=== PATIENT | female | born 1980 | race American Indian/Alaskan Native ===

== ENCOUNTER 2017-01-15 20:51 | Emergency (ER) | payer MEDICAID ==
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
[2017-01-16] MEDS ORDERED: NORCO 7.5/325 PO ONE (02:45)
[2017-01-16] MEDS ORDERED: FLEXERIL PO ONE (02:45)
[2017-01-16] MEDS ORDERED: MOTRIN PO ONE (02:45)
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
[2017-01-16 04:55] VITALS: BP 135/69
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
== END 2017-01-16 04:55 | disposition home or self-care (01) ==
LOC: ED 20:51
DX: M54.2 Cervicalgia (principal); M25.511 Pain in right shoulder; R51 Headache; I10 Essential (primary) hypertension; V89.2XXA Person injured in unspecified motor-vehicle accident, traffic, initial encounter; Y93.9 Activity, unspecified; Y99.9 Unspecified external cause status; Y92.410 Unspecified street and highway as the place of occurrence of the external cause
CPT/HCPCS: 70360; 72040; 99283

== ENCOUNTER 2018-10-06 09:55 | Emergency (ER) | payer OTHER ==
[2018-10-06] MEDS ORDERED: DECADRON IV ONE (11:36)
[2018-10-06] MEDS ORDERED: NACL 0.9% 1000 ML 1,000 ML IV ONE (11:36)
--- NOTE | 2018-10-06 12:31 | Emergency Department Report ---
ED General Adult HPI - General Chief complaint: Pain General Stated complaint: LUPUS FLARE UP/STIFF NECK Time Seen by Provider: 10/06/18 11:14 Source: patient Mode of arrival: Ambulatory Limitations: No Limitations - History of Present Illness Initial comments: Patient is a 37-year-old female with a history of lupus presents to ED complaining of generalized body pain for the past week. Patient states her pain has been getting worse. Patient states that she has had lupus for the past 2-3 years. Patient states that she recently moved here so she does not taking currently any medications. She denies fevers/chills/nausea vomiting abdominal pain chest pain on rash. - Related Data Home Medications Medication Instructions Recorded Confirmed Last Taken LORazepam [Ativan] 2 mg PO Q8HR PRN 01/16/17 01/16/17 2 Days Ago ~01/14/17 Previous Rx's Medication Instructions Recorded Last Taken Type Ibuprofen [Motrin 800 MG tab] 800 mg PO TID #30 tablet 07/09/18 Unknown Rx methOCARBAMOL [Robaxin TAB] 500 mg PO TID #15 tab 07/09/18 Unknown Rx predniSONE [Deltasone] 40 mg PO QDAY #10 tablet 07/09/18 Unknown Rx Naproxen [Naprosyn] 500 mg PO BID #30 tablet 10/06/18 Unknown Rx methylPREDNISolone [Medrol 4MG 4 mg PO DAILY #1 tab.ds.pk 10/06/18 Unknown Rx DOSEPAK (21 tabs)] Allergies Allergy/AdvReac Type Severity Reaction Status Date / Time No Known Allergies Allergy Verified 10/06/18 10:05 ED Review of Systems ROS: Stated complaint: LUPUS FLARE UP/STIFF NECK Other details as noted in HPI Comment: All other systems reviewed and negative ED Past Medical Hx - Past Medical History Previous Medical History?: Yes Hx Hypertension: No Additional medical history: Lupus - Surgical History Past Surgical History?: Yes Additional Surgical History: tubal ligation, oral - Social History Smoking Status: Never Smoker Substance Use Type: None - Medications Home Medications: Home Medications Medication Instructions Recorded Confirmed Last Taken Type LORazepam [Ativan] 2 mg PO Q8HR PRN 01/16/17 01/16/17 2 Days Ago History ~01/14/17 Ibuprofen [Motrin 800 MG tab] 800 mg PO TID #30 tablet 07/09/18 Unknown Rx methOCARBAMOL [Robaxin TAB] 500 mg PO TID #15 tab 07/09/18 Unknown Rx predniSONE [Deltasone] 40 mg PO QDAY #10 tablet 07/09/18 Unknown Rx Naproxen [Naprosyn] 500 mg PO BID #30 tablet 10/06/18 Unknown Rx methylPREDNISolone [Medrol 4MG 4 mg PO DAILY #1 tab.ds.pk 10/06/18 Unknown Rx DOSEPAK (21 tabs)] ED Physical Exam - General Limitations: No Limitations General appearance: alert, in no apparent distress - Head Head exam: Present: atraumatic, normocephalic - Eye Eye exam: Present: normal appearance - ENT ENT exam: Present: mucous membranes moist - Neck Neck exam: Present: normal inspection - Respiratory Respiratory exam: Present: normal lung sounds bilaterally. Absent: respiratory distress - Cardiovascular Cardiovascular Exam: Present: regular rate, normal rhythm. Absent: systolic murmur, diastolic murmur, rubs, gallop - GI/Abdominal GI/Abdominal exam: Present: soft, normal bowel sounds - Extremities Exam Extremities exam: Present: normal inspection - Back Exam Back exam: Present: normal inspection - Neurological Exam Neurological exam: Present: alert, oriented X3 - Psychiatric Psychiatric exam: Present: normal affect, normal mood - Skin Skin exam: Present: warm, dry, intact, normal color. Absent: rash ED Course Vital Signs 10/06/18 10:04 Temperature 98.3 F Pulse Rate 72 Respiratory 18 Rate Blood Pressure 153/83 O2 Sat by Pulse 100 Oximetry ED Medical Decision Making - Lab Data Result diagrams: 10/06/18 12:18 10/06/18 12:18 - Medical Decision Making 37-year-old female presented at Lupus flareup of myalgia Patient received Decadron, and 1 L of fluids. And pain Medication in ED. CBC BMP test obtained. Labs show no abnormalities. Discussed patient to follow up with primary care physician. Vital signs are normal patient is in no acute distress. Patient states she feels better after administration of medications. Critical care attestation.: If time is entered above; I have spent that time in minutes in the direct care of this critically ill patient, excluding procedure time. ED Disposition Clinical Impression: Lupus Disposition: DC-01 TO HOME OR SELFCARE Is pt being admited?: No Does the pt Need Aspirin: No Condition: Stable Instructions: Sarcoidosis (ED), Musculoskeletal Pain (ED) Additional Instructions: Make sure to follow up with the primary care physician as discussed. Take all your medications as you've been prescribed. If you have any worsening symptoms or develop new symptoms please return to ED immediately. Prescriptions: methylPREDNISolone [Medrol 4MG DOSEPAK (21 tabs)] 4 mg PO DAILY #1 tab.ds.pk Naproxen [Naprosyn] 500 mg PO BID #30 tablet Referrals: PONCE CATHERINE MD [Primary Care Provider] - 3-5 Days [facility] [Provider Group] - 3-5 Days [facility] [Outside] - 3-5 Days [facility] [Outside] - 3-[address] [facility] [Outside] - 3-5 Days Forms: Work/School Release Form(ED) Time of Disposition: 13:56
[2018-10-06 12:41] LABS: Hematocrit 34.2 % (30.3-42.9); Hemoglobin 11.8 gm/dl (10.1-14.3); Mean Corpuscular HGB Conc 34 % (30-34); Mean Corpuscular Hemoglobin 30 pg (28-32); Mean Corpuscular Volume 87 fl (79-97); Platelet Count 268 K/mm3 (140-440); Red Blood Count 3.91 M/mm3 (3.65-5.03); Red Cell Distribution Width 12.5 % (13.2-15.2)
[2018-10-06 12:42] LABS: Basophils % (Auto) 0.7 % (0.0-1.8); Eosinophils # (Auto) 0.1 K/mm3 (0.0-0.4); Eosinophils % (Auto) 1.8 % (0.0-4.3); Lymphocytes # (Auto) 1.5 K/mm3 (1.2-5.4); Lymphocytes % (Auto) 36.7 % (13.4-35.0); Monocytes # (Auto) 0.3 K/mm3 (0.0-0.8); Monocytes % (Auto) 7.6 % (0.0-7.3)
[2018-10-06 12:57] LABS: BUN/Creatinine Ratio 14; Blood Urea Nitrogen 7 mg/dL (7-17); Calcium 9.2 mg/dL (8.4-10.2); Hemolysis Index 56
[2018-10-06] MEDS ORDERED: TORADOL IV ONE (12:58)
[2018-10-06] MEDS ORDERED: MORPHINE IV ONE (12:58)
[2018-10-06 14:28] VITALS: BP 151/83
== END 2018-10-06 14:54 | disposition home or self-care (01) ==
LOC: ED 09:55
DX: A18.4 Tuberculosis of skin and subcutaneous tissue (principal); Z98.51 Tubal ligation status; Z79.899 Other long term (current) drug therapy
CPT/HCPCS: 36415; 80048; 84703; 85025; 96361; 96374; 96375; 99283; J1100; J1885; J2270; J7030

== ENCOUNTER 2018-10-23 00:11 | Emergency (ER) | payer SELFPAY ==
[2018-10-23] MEDS ORDERED: ASPIRIN PO ONE (01:47)
[2018-10-23 02:27] LABS: Basophils % (Auto) 0.3 % (0.0-1.8); Eosinophils # (Auto) 0.1 K/mm3 (0.0-0.4); Eosinophils % (Auto) 1.9 % (0.0-4.3); Hematocrit 34.4 % (30.3-42.9); Hemoglobin 11.7 gm/dl (10.1-14.3); Lymphocytes # (Auto) 1.5 K/mm3 (1.2-5.4); Lymphocytes % (Auto) 36.1 % (13.4-35.0); Mean Corpuscular HGB Conc 34 % (30-34); Mean Corpuscular Volume 89 fl (79-97); Monocytes # (Auto) 0.4 K/mm3 (0.0-0.8); Monocytes % (Auto) 9.7 % (0.0-7.3); Platelet Count 241 K/mm3 (140-440); Red Blood Count 3.88 M/mm3 (3.65-5.03); Red Cell Distribution Width 13.2 % (13.2-15.2)
[2018-10-23 02:45] LABS: BUN/Creatinine Ratio 20; Blood Urea Nitrogen 10 mg/dL (7-17); Calcium 8.7 mg/dL (8.4-10.2); Hemolysis Index 3
--- NOTE | 2018-10-23 02:53 | XRay Report ---
. CHEST 1 VIEW INDICATION / CLINICAL INFORMATION: Chest Pain. COMPARISON: None available. FINDINGS: SUPPORT DEVICES: None. HEART / MEDIASTINUM: No significant abnormality. LUNGS / PLEURA: No significant pulmonary or pleural abnormality. No pneumothorax. ADDITIONAL FINDINGS: No significant additional findings. IMPRESSION: 1. No acute findings. Signer Name: Benito Alfaro MD Signed: 10/23/2018 2:49 AM Workstation Name: [id number]
[2018-10-23] MEDS ORDERED: ZOFRAN IV ONE (03:54)
[2018-10-23] MEDS ORDERED: SOLU-Medrol IV ONE (03:54)
[2018-10-23] MEDS ORDERED: SUBLIMAZE IV ONE ×2 (03:54→05:31)
[2018-10-23] MEDS ORDERED: K-DUR PO ONE (03:54)
--- NOTE | 2018-10-23 04:03 | Emergency Department Report ---
HPI - General Chief Complaint: Pain General Time Seen by Provider: 10/23/18 03:46 - HPI HPI: Room 17 The patient is a 37-year-old female presenting with a chief complaint body pain from lupus flare. The patient states yesterday she began having pain all over her body consistent with her previous lupus flares. Patient denies fever. Patient admits to nausea but denies vomiting. Patient currently gets her body pain score 10/10. Location: [See above] Duration: [See above] Quality: [See above] Severity: [See above] Modifying factors: [see above] Context: [see above] Mode of transportation: [not driving] ED Past Medical Hx - Past Medical History Hx Hypertension: No Additional medical history: Lupus - Surgical History Additional Surgical History: tubal ligation, oral - Family History Family history: no significant - Social History Smoking Status: Never Smoker Substance Use Type: None (denies illicit drug use), Alcohol (occasional) - Medications Home Medications: Home Medications Medication Instructions Recorded Confirmed Last Taken Type LORazepam [Ativan] 2 mg PO Q8HR PRN 01/16/17 01/16/17 2 Days Ago History ~01/14/17 Ibuprofen [Motrin 800 MG tab] 800 mg PO TID #30 tablet 07/09/18 Unknown Rx methOCARBAMOL [Robaxin TAB] 500 mg PO TID #15 tab 07/09/18 Unknown Rx predniSONE [Deltasone] 40 mg PO QDAY #10 tablet 07/09/18 Unknown Rx methylPREDNISolone [Medrol 4MG 4 mg PO DAILY #1 tab.ds.pk 10/06/18 Unknown Rx DOSEPAK (21 tabs)] traMADol [Ultram 50 MG tab] 50 mg PO Q6HR PRN #15 tablet 10/06/18 Unknown Rx HYDROcodone/APAP 5-325 [[place] 1 - 2 each PO Q6HR PRN #14 tablet 10/23/18 Unknown Rx 5/325] Prednisone [predniSONE 10 mg 10 mg PO .TAPER #1 tab.ds.pk 10/23/18 Unknown Rx (6-Day Pack, 21 Tabs)] ED Review of Systems ROS: Stated complaint: LUPUS FLARE UP,HEADACHE/BACKACHE Other details as noted in HPI Constitutional: denies: fever Eyes: denies: eye pain ENT: denies: throat pain Respiratory: no symptoms reported Cardiovascular: denies: chest pain Endocrine: no symptoms reported Gastrointestinal: nausea Genitourinary: denies: dysuria Musculoskeletal: arthralgia, myalgia Neurological: headache Physical Exam - Physical Exam Vital Signs: Vital Signs 10/23/18 00:56 Temperature 97.6 F Pulse Rate 76 Respiratory 18 Rate Blood Pressure 128/69 O2 Sat by Pulse 100 Oximetry Physical Exam: GENERAL: The patient is well-developed well-nourished female lying on stretcher not appearing to be in acute distress. [] HEENT: Normocephalic. Atraumatic. Extraocular motions are intact. Patient has moist mucous membranes. NECK: Supple. No meningitic signs are noted. Trachea midline CHEST/LUNGS: Clear to auscultation. There is no respiratory distress noted. HEART/CARDIOVASCULAR: Regular. There is no tachycardia. There is no gallop rub or murmur. 2+ radial pulses bilaterally ABDOMEN: Abdomen is soft, nontender. Patient has normal bowel sounds. There is no abdominal distention. SKIN: There is no rash. There is no edema. There is no diaphoresis. NEURO: The patient is awake, alert, and oriented. The patient is cooperative. The patient has no focal neurologic deficits. The patient has normal speech. Cranial nerves II through XII grossly intact MUSCULOSKELETAL: There is mild swelling and soreness of the hands bilaterally.. There is no evidence of acute injury. ED Course Vital Signs 10/23/18 00:56 Temperature 97.6 F Pulse Rate 76 Respiratory 18 Rate Blood Pressure 128/69 O2 Sat by Pulse 100 Oximetry - Reevaluation(s) Reevaluation #1: 10/23/18 05:32 Patient states her pain is decreased to a 6/10. Will administer 1 more round of IV analgesia ED Medical Decision Making - Lab Data Result diagrams: 10/23/18 01:57 10/23/18 01:57 Laboratory Tests 10/23/18 10/23/18 01:57 01:57 WBC 4.0 L RBC 3.88 Hgb 11.7 Hct 34.4 MCV 89 MCH 30 MCHC 34 RDW 13.2 Plt Count 241 Lymph % (Auto) 36.1 H [place] % (Auto) 9.7 H Eos % (Auto) 1.9 Baso % (Auto) 0.3 Lymph # 1.5 [place] # 0.4 Eos # 0.1 Baso # 0.0 Seg Neutrophils % 52.0 Seg Neutrophils # 2.1 Sodium 141 Potassium 3.1 L Chloride 106.1 Carbon Dioxide 23 Anion Gap 15 BUN 10 Creatinine 0.5 L Estimated GFR > 60 BUN/Creatinine Ratio 20 Glucose 132 H Calcium 8.7 Troponin T < 0.010 - EKG Data -: EKG Interpreted by Me EKG shows normal: sinus rhythm Rate: normal - EKG Data When compared to previous EKG there are: previous EKG unavailable Interpretation: nonspecific ST-T wave jason (T-wave inversion in lead V2) - Radiology Data Radiology results: report reviewed (chest x-ray), image reviewed (chest x-ray) interpreted by me: Chest x-ray-no focal infiltrate, no pneumothorax [facility] [address] [place] [address] XRay Report Signed Patient: CEDRICK BUSCH MR#: [id number] : 1980 Acct:[id number] Age/Sex: 37 / F ADM Date: 10/23/18 Loc: ED Attending Dr: Ordering Physician: ED MD GLORIA Date of Service: 10/23/18 Procedure(s): XR chest 1V ap Accession Number(s): [id number] cc: ED MD GLORIA Fluoro Time In Minutes: . CHEST 1 VIEW INDICATION / CLINICAL INFORMATION: Chest Pain. COMPARISON: None available. FINDINGS: SUPPORT DEVICES: None. HEART / MEDIASTINUM: No significant abnormality. LUNGS / PLEURA: No significant pulmonary or pleural abnormality. No pneumothorax. ADDITIONAL FINDINGS: No significant additional findings. IMPRESSION: 1. No acute findings. Signer Name: Benito Alfaro MD Signed: 10/23/2018 2:49 AM Workstation Name: [id number] Transcribed By: IRON Dictated By: Benito Alfaro MD Electronically Authenticated By: Benito Alfaro MD Signed Date/Time: 10/23/18248 DD/ 8 TD/TT: - Differential Diagnosis Lupus flare, Critical care attestation.: If time is entered above; I have spent that time in minutes in the direct care of this critically ill patient, excluding procedure time. ED Disposition Clinical Impression: Arthralgia, Hypokalemia, Lupus Disposition: DC-01 TO HOME OR SELFCARE Is pt being admited?: No Does the pt Need Aspirin: No Condition: Stable Additional Instructions: Return to the emergency department immediately should you develop worsening symptoms, fever, inability to tolerate food or liquid or any other concerns. Prescriptions: HYDROcodone/APAP 5-325 [[place] 5/325] 1 - 2 each PO Q6HR PRN #14 tablet PRN Reason: Pain Prednisone [predniSONE 10 mg (6-Day Pack, 21 Tabs)] 10 mg PO .TAPER #1 tab.ds.pk Referrals: PONCE CATHERINE MD [Primary Care Provider] - 3-5 Days Time of Disposition: 05:33
[2018-10-23] MEDS ORDERED: BENADRYL IV ONE (05:31)
[2018-10-23 06:19] VITALS: BP 127/71
== END 2018-10-23 06:03 | disposition home or self-care (01) ==
LOC: ED 00:11
DX: E87.6 Hypokalemia (principal); A18.4 Tuberculosis of skin and subcutaneous tissue; Z79.899 Other long term (current) drug therapy
CPT/HCPCS: 36415; 71045; 80048; 84484; 85025; 93005; 93010; 96374; 96375; 96376; 99284; J1200; J2405; J2930; J3010

== ENCOUNTER 2018-11-26 09:38 | Emergency (ER) | payer MEDICAID ==
[2018-11-26] MEDS ORDERED: MORPHINE IV ONE (12:16)
[2018-11-26] MEDS ORDERED: ZOFRAN IV ONE (12:16)
[2018-11-26] MEDS ORDERED: NACL 0.9% 1000 ML 1,000 ML IV ONE (12:16)
[2018-11-26] MEDS ORDERED: SOLU-Medrol IV ONE (12:18)
--- NOTE | 2018-11-26 12:20 | Emergency Department Report ---
ED General Adult HPI - General Chief complaint: Pain General Stated complaint: LUPUS FLARE UP Time Seen by Provider: 11/26/18 12:13 Source: patient Mode of arrival: Ambulatory Limitations: No Limitations - History of Present Illness Initial comments: Patient is 38 years old female with history of lupus. Patient presented to the ER complaining of generalized joint pain and swelling for the last 3 days. Patient described her pain as throbbing in nature. Patient denied any fever or chills. She also denied any weakness numbness or tingling sensation. Skin also denied any chest bowles or shortness of breath. - Related Data Home Medications Medication Instructions Recorded Confirmed Last Taken LORazepam [Ativan] 2 mg PO Q8HR PRN 01/16/17 01/16/17 2 Days Ago ~01/14/17 Previous Rx's Medication Instructions Recorded Last Taken Type Ibuprofen [Motrin 800 MG tab] 800 mg PO TID #30 tablet 07/09/18 Unknown Rx methOCARBAMOL [Robaxin TAB] 500 mg PO TID #15 tab 07/09/18 Unknown Rx predniSONE [Deltasone] 40 mg PO QDAY #10 tablet 07/09/18 Unknown Rx methylPREDNISolone [Medrol 4MG 4 mg PO DAILY #1 tab.ds.pk 10/06/18 Unknown Rx DOSEPAK (21 tabs)] traMADol [Ultram 50 MG tab] 50 mg PO Q6HR PRN #15 tablet 10/06/18 Unknown Rx HYDROcodone/APAP 5-325 [[place] 1 - 2 each PO Q6HR PRN #14 tablet 10/23/18 Unknown Rx 5/325] Prednisone [predniSONE 10 mg 10 mg PO .TAPER #1 tab.ds.pk 10/23/18 Unknown Rx (6-Day Pack, 21 Tabs)] Allergies Allergy/AdvReac Type Severity Reaction Status Date / Time No Known Allergies Allergy Verified 10/06/18 10:05 ED Review of Systems ROS: Stated complaint: LUPUS FLARE UP Other details as noted in HPI Comment: All other systems reviewed and negative Constitutional: denies: chills, fever Cardiovascular: denies: chest pain, palpitations Gastrointestinal: denies: abdominal pain, nausea Musculoskeletal: joint swelling, arthralgia, myalgia. denies: back pain Skin: denies: rash, lesions ED Past Medical Hx - Past Medical History Hx Hypertension: No Additional medical history: Lupus - Surgical History Additional Surgical History: tubal ligation, oral - Social History Smoking Status: Never Smoker Substance Use Type: None - Medications Home Medications: Home Medications Medication Instructions Recorded Confirmed Last Taken Type LORazepam [Ativan] 2 mg PO Q8HR PRN 01/16/17 01/16/17 2 Days Ago History ~01/14/17 Ibuprofen [Motrin 800 MG tab] 800 mg PO TID #30 tablet 07/09/18 Unknown Rx methOCARBAMOL [Robaxin TAB] 500 mg PO TID #15 tab 07/09/18 Unknown Rx predniSONE [Deltasone] 40 mg PO QDAY #10 tablet 07/09/18 Unknown Rx methylPREDNISolone [Medrol 4MG 4 mg PO DAILY #1 tab.ds.pk 10/06/18 Unknown Rx DOSEPAK (21 tabs)] traMADol [Ultram 50 MG tab] 50 mg PO Q6HR PRN #15 tablet 10/06/18 Unknown Rx HYDROcodone/APAP 5-325 [[place] 1 - 2 each PO Q6HR PRN #14 tablet 10/23/18 Unknown Rx 5/325] Prednisone [predniSONE 10 mg 10 mg PO .TAPER #1 tab.ds.pk 10/23/18 Unknown Rx (6-Day Pack, 21 Tabs)] ED Physical Exam - General Limitations: No Limitations General appearance: alert, in no apparent distress - Head Head exam: Present: atraumatic, normocephalic, normal inspection - Eye Eye exam: Present: normal appearance, PERRL - ENT ENT exam: Present: normal exam, normal orophraynx, mucous membranes dry - Neck Neck exam: Present: normal inspection, full ROM. Absent: tenderness, meningismus, lymphadenopathy, thyromegaly - Respiratory Respiratory exam: Present: normal lung sounds bilaterally - Cardiovascular Cardiovascular Exam: Present: regular rate, normal rhythm, normal heart sounds - GI/Abdominal GI/Abdominal exam: Present: soft, normal bowel sounds. Absent: distended, tenderness, guarding, rebound, rigid, organomegaly, mass, bruit, pulsatile mass, hernia - Extremities Exam Extremities exam: Present: normal inspection, full ROM, normal capillary refill, joint swelling. Absent: tenderness, pedal edema, calf tenderness - Back Exam Back exam: Present: normal inspection, full ROM. Absent: CVA tenderness (R), CVA tenderness (L), muscle spasm, paraspinal tenderness, vertebral tenderness, rash noted - Neurological Exam Neurological exam: Present: alert, oriented X3, CN II-XII intact, normal gait, reflexes normal - Psychiatric Psychiatric exam: Present: normal mood - Skin Skin exam: Present: warm, intact, normal color ED Course Vital Signs 11/26/18 10:05 Temperature 98.2 F Pulse Rate 77 Respiratory 20 Rate Blood Pressure 129/74 O2 Sat by Pulse 100 Oximetry ED Medical Decision Making - Lab Data Result diagrams: 11/26/18 12:24 11/26/18 12:24 - Medical Decision Making Patient is 38 years old female with history of lupus. Patient presented to the ER complaining of generalized joint pain and swelling for the last 3 days. Patient described her pain as throbbing in nature. Patient denied any fever or chills. She also denied any weakness numbness or tingling sensation. Skin also denied any chest bowles or shortness of breath. Patient received morphine and Zofran. Patient stated that she is feeling much better. Labs reviewed and is unremarkable. Patient advised to follow-up with her primary care physician in the next 2-3 days and to return to the ER if symptoms are not improved. Critical care attestation.: If time is entered above; I have spent that time in minutes in the direct care of this critically ill patient, excluding procedure time. ED Disposition Clinical Impression: Lupus arthritis, Generalized pain Disposition: - TO HOME OR SELFCARE Is pt being admited?: No Condition: Stable Instructions: Musculoskeletal Pain (ED) Referrals: PRIMARY CARE, [Primary Care Provider] - 3-5 Days
[2018-11-26 12:43] LABS: Basophils % (Auto) 0.8 % (0.0-1.8); Eosinophils # (Auto) 0.1 K/mm3 (0.0-0.4); Lymphocytes # (Auto) 1.2 K/mm3 (1.2-5.4); Lymphocytes % (Auto) 30.4 % (13.4-35.0); Mean Corpuscular HGB Conc 33 % (30-34); Mean Corpuscular Volume 89 fl (79-97); Monocytes # (Auto) 0.3 K/mm3 (0.0-0.8); Monocytes % (Auto) 7.6 % (0.0-7.3); Platelet Count 245 K/mm3 (140-440); Red Blood Count 4.04 M/mm3 (3.65-5.03); Red Cell Distribution Width 13.1 % (13.2-15.2)
[2018-11-26 12:56] LABS: Alanine Aminotransferase 19 units/L (7-56); Albumin 4.1 g/dL (3.9-5); BUN/Creatinine Ratio 14; Blood Urea Nitrogen 7 mg/dL (7-17); Calcium 9.2 mg/dL (8.4-10.2); Hemolysis Index 6
[2018-11-26] MEDS ORDERED: K-DUR PO ONE (13:24)
[2018-11-26 15:46] VITALS: BP 133/72
== END 2018-11-26 15:45 | disposition home or self-care (01) ==
LOC: ED 09:38
DX: M32.9 Systemic lupus erythematosus, unspecified (principal); Z79.1 Long term (current) use of non-steroidal anti-inflammatories (NSAID); Z79.899 Other long term (current) drug therapy; Z98.51 Tubal ligation status
CPT/HCPCS: 36415; 80053; 85025; 96374; 96375; 99283; J2270; J2405; J2930; J7030